=== PATIENT | female | born 1995 | race Caucasian/White ===

== ENCOUNTER 2016-09-26 15:31 | Emergency (ER) | payer SELFPAY ==
[~2016-09-26] VITALS: Ht 157.5 cm; Wt 63.5 kg
[~2016-09-26 15:31] MED LIST: BENTYL10 MG PO; NORCO 5/325 MG1 TAB PO; PNV-DHA1 SGL PO; ZOFRAN ODT4 MG SL
[2016-09-26 15:38] VITALS: BP 126/82
--- NOTE | 2016-09-26 16:29 | NUR ---
PATIENT TO ER BED 3.
--- NOTE | 2016-09-26 16:31 | NUR ---
Patient being evaluated by physician at bedside.
[2016-09-26] MEDS ORDERED: ALUMINUM HYD/MAG/SIMETHICONE 30 ML, BELLADONNA/PHENOBARBITAL 10 ML, LIDOCAINE VISCOUS 2... PO ONE (16:35)
[2016-09-26] MEDS ORDERED: KETOROLAC 60 MG/2 ML VIAL IM ONE (16:35)
[2016-09-26] MEDS ORDERED: ONDANSETRON 4 MG ODT PO ONE (16:35)
--- NOTE | 2016-09-26 16:37 | NUR ---
PATIENT PRESENTS TO ED WITH T PRESENTS TO ER W/C/O EPIGASTRIC PAIN X2 DAYS. PT DENIES ANY OTHER MEDICAL HX.DENIES N/V/D; SKIN IS PINK/WARM/DRY; AAOX4 WITH EVEN AND STEADY GAIT; LUNGS CLEAR BL; HR EVEN AND REGULAR; PT DENIES ANY FEVER, CP, SOB, OR COUGH AT THIS TIME; PATIENT STATES PAIN OF 8/10 AT THIS TIME; VSS; PATIENT POSITIONED FOR COMFORT; HOB ELEVATED; BEDRAILS UP X2; BED DOWN. ER MD MADE AWARE OF PT STATUS.
[2016-09-26 17:48] VITALS: BP 123/80
--- NOTE | 2016-09-26 17:48 | NUR ---
Patient discharged with v/s stable. Written and verbal after care instructions given and explained. Patient alert, oriented and verbalized understanding of instructions. Ambulatory with steady gait. All questions addressed prior to discharge. ID band removed. Patient advised to follow up with PMD. Rx of PEPCID, BENTYL AND MYLANTA given. Patient educated on indication of medication including possible reaction and side effects. Opportunity to ask questions provided and answered.
== END 2016-09-26 17:48 | disposition home or self-care (01) ==
LOC: MED 15:31
DX: R10.11 Right upper quadrant pain (principal); R19.7 Diarrhea, unspecified; R11.10 Vomiting, unspecified
CPT/HCPCS: 36415; 80053; 83690; 84703; 85025; 96372; 99284; J1885; S0119

== ENCOUNTER 2019-06-23 20:11 | Emergency (ER) | payer OTHER ==
[~2019-06-23] VITALS: Ht 157.5 cm; Wt 83.0 kg
[~2019-06-23 20:11] MED LIST changes: +ACET-8386 PO; +BEN10 PO; -BENTYL10 MG PO; -NORCO 5/325 MG1 TAB PO; +ONDA-24 SL; -PNV-DHA1 SGL PO; -ZOFRAN ODT4 MG SL
[2019-06-23 20:31] VITALS: BP 150/86
--- NOTE | 2019-06-23 20:31 | NUR ---
PT TO ER BED 2
[2019-06-23] MEDS ORDERED: LIDOCAINE 2% 1000 MG/50 ML VIAL INJ ONE (20:45)
--- NOTE | 2019-06-23 20:45 | NUR ---
ASSESSMENT COMPLETED AT THIS TIME. PATIENT LAYING DOWN BED. FRIEND AT BEDSIDE. BED IN LOW LOCKED POSITION. SIDE RAIL UP X1.
[2019-06-23 23:00] VITALS: BP 135/72
--- NOTE | 2019-06-23 23:01 | NUR ---
Patient discharged with v/s stable. Written and verbal after care instructions given and explained. Patient alert, oriented and verbalized understanding of instructions. Ambulatory with steady gait. All questions addressed prior to discharge. ID band removed. Patient advised to follow up with OB or return to ED in 2-3 days for recheck. Rx of BACTRIM,IBUPROFEN,AND NORCO given. Patient educated on indication of medication including possible reaction and side effects. Opportunity to ask questions provided and answered.
== END 2019-06-23 23:01 | disposition home or self-care (01) ==
LOC: MED 20:11
DX: N75.1 Abscess of Bartholin's gland (principal); Z79.899 Other long term (current) drug therapy
CPT/HCPCS: 56405; 99284; J2001

== ENCOUNTER 2019-06-25 15:08 | Emergency (ER) | payer SELFPAY ==
[~2019-06-25] VITALS: Ht 157.5 cm; Wt 81.6 kg
[2019-06-25 15:36] VITALS: BP 141/67
--- NOTE | 2019-06-25 15:46 | NUR ---
PATIENT AMBULATED STEADY GAIT T BED 12.
--- NOTE | 2019-06-25 16:03 | NUR ---
23/F PRESENTS TO ED WITH SIGNIFICANT OTHER FOR WOUND CHECK ON INCISION ON L BARTHOLIN CYST, WAS PERFORMED HERE IN [place] ER 2 DAYS AGO. PT REPORTS SUBJECTIVE FEVER, AFEBRILE AT THIS TIME. PT AWAKE AND ALERT, SKIN NORMAL COLOR WARM AND DRY, RR EVEN AND UNLABORED. DENIES KNOWN MED HX RX ABX AT THIS TIME
[2019-06-25 17:10] VITALS: BP 138/52
--- NOTE | 2019-06-25 17:10 | NUR ---
Patient discharged with v/s stable. Written and verbal after care instructions given and explained. Patient verbalized understanding. Ambulatory with steady gait. All questions addressed prior to discharge. Advised to follow up with PMD.
== END 2019-06-25 17:10 | disposition home or self-care (01) ==
LOC: MED 15:08
DX: N75.0 Cyst of Bartholin's gland (principal); Z79.899 Other long term (current) drug therapy
CPT/HCPCS: 99281

== ENCOUNTER 2019-12-11 12:20 | Emergency (ER) | payer OTHER, SELFPAY ==
[~2019-12-11] VITALS: Ht 157.5 cm; Wt 62.6 kg
[2019-12-11 12:32] VITALS: BP 138/75
--- NOTE | 2019-12-11 12:35 | NUR ---
24 Y/O FEMALE FROM HOME C/O DRY COUGH, SORE THROAT, AND RUNNY NOSE X 1 WK. STATES GENERALZIED BODY PAIN AND FATIGUE STARTED YESTERDAY. RR EVEN AND UNLABORED, NO RESPIRATORY DISTRESS. DENIES FEVER/CHILLS. +NAUSEA, DENIES VOMITING/DIARRHEA. POSITIONED FOR COMFORT. VSS. PT PLACED ON PULSE OX. MEDHX: DENIES ALLERGIES: NKA
--- NOTE | 2019-12-11 12:44 | NUR ---
XRAY AT BEDSIDE
--- NOTE | 2019-12-11 12:52 | NUR ---
COVID-19 SWAB COLLECTED FROM PT
--- NOTE | 2019-12-11 13:22 | NUR ---
DR SCHMIDT AT BEDSIDE EXAMINING PT
--- NOTE | 2019-12-11 13:23 | NUR ---
PT RESTING IN BED AWAKE AND ALERT ON CELL PHONE. RR EVEN AND UNLABORED. VSS. WILL CONTINUE TO MONITOR
[2019-12-11 13:37] VITALS: BP 128/70
--- NOTE | 2019-12-11 13:37 | NUR ---
Patient discharged with v/s stable. Written and verbal after care instructions given and explained. Patient alert, oriented and verbalized understanding of instructions. Ambulatory with steady gait. All questions addressed prior to discharge. ID band removed. Patient advised to follow up with PMD. Rx of Motrin 600mg given. Patient educated on indication of medication including possible reaction and side effects. Opportunity to ask questions provided and answered.
== END 2019-12-11 13:37 | disposition home or self-care (01) ==
LOC: EEVIPCON 12:20 → MED 12:20
DX: R05 Cough (principal); Z20.828 Contact with and (suspected) exposure to other viral communicable diseases; F12.90 Cannabis use, unspecified, uncomplicated; Z90.49 Acquired absence of other specified parts of digestive tract; Z98.890 Other specified postprocedural states; Z79.899 Other long term (current) drug therapy
CPT/HCPCS: 71045; 99283; C9803; Q0092; U0003; 36415

== ENCOUNTER 2020-06-30 10:46 | Emergency (ER) | payer OTHER, SELFPAY ==
[~2020-06-30] VITALS: Ht 157.5 cm; Wt 65.8 kg
[2020-06-30 11:43] VITALS: BP 157/81
--- NOTE | 2020-06-30 11:43 | NUR ---
COVID SWAB DONE
--- NOTE | 2020-06-30 11:47 | NUR ---
OF3
[2020-06-30 11:53] VITALS: BP 157/81
== END 2020-06-30 11:53 | disposition home or self-care (01) ==
LOC: MED 10:46
DX: R43.8 Other disturbances of smell and taste (principal); Z20.828 Contact with and (suspected) exposure to other viral communicable diseases; R50.9 Fever, unspecified; Z79.899 Other long term (current) drug therapy
CPT/HCPCS: 99283; U0003

== ENCOUNTER 2021-10-10 10:25 | Emergency (ER) | payer OTHER, SELFPAY ==
[~2021-10-10] VITALS: Ht 157.5 cm; Wt 55.8 kg
[~2021-10-10 10:25] MED LIST changes: +ONDA-188 SL; -ONDA-24 SL
[2021-10-10 10:29] VITALS: BP 158/107
--- NOTE | 2021-10-10 10:32 | NUR ---
PATIENT AMBULATED TO BED 4, PATIENT HAS STEADY GAIT
[2021-10-10] MEDS ORDERED: KETOROLAC 60 MG/2 ML VIAL IM ONE (11:10)
--- NOTE | 2021-10-10 11:10 | NUR ---
DOCTOR SCHMIDT AT BEDSIDE
[2021-10-10] MEDS ORDERED: IBUP-2213 PO (11:27)
[2021-10-10] MEDS ORDERED: ACET-8386 PO (11:27)
--- NOTE | 2021-10-10 11:35 | NUR ---
Patient discharged with v/s stable. Written and verbal after care instructions given and explained. Patient alert, oriented and verbalized understanding of instructions. Ambulatory with steady gait. All questions addressed prior to discharge. ID band removed. Patient advised to follow up with PMD. Rx of IBUPROFEN AND HYDROCODONE/ACETAMINOPHEN given. Patient educated on indication of medication including possible reaction and side effects. Opportunity to ask questions provided and answered.
[2021-10-10 11:36] VITALS: BP 158/107
== END 2021-10-10 11:36 | disposition home or self-care (01) ==
LOC: MED 10:25
DX: R07.89 Other chest pain (principal); Z90.49 Acquired absence of other specified parts of digestive tract; Z98.890 Other specified postprocedural states; Z79.891 Long term (current) use of opiate analgesic; Z79.899 Other long term (current) drug therapy
CPT/HCPCS: 93005; 96372; 99283; J1885

== ENCOUNTER 2022-01-29 02:25 | Emergency (ER) | payer OTHER ==
[~2022-01-29] VITALS: Ht 157.5 cm; Wt 52.2 kg
[~2022-01-29 02:25] MED LIST changes: +IBUP-2213 PO
[2022-01-29 02:31] VITALS: BP 150/70
--- NOTE | 2022-01-29 02:34 | NUR ---
TO LOBBY A/W BED AMBULATORY
[2022-01-29] MEDS ORDERED: HALOPERIDOL IM 5 MG/ML VIAL IM ONE (03:55)
--- NOTE | 2022-01-29 04:23 | NUR ---
PT AMBULATED TO BED #9
--- NOTE | 2022-01-29 04:41 | NUR ---
LABS COLLECTED AND TAKEN TO LAB.
--- NOTE | 2022-01-29 04:55 | NUR ---
26 YO F BIB SELF WITH C/C OF 10/10 EPIGASTRIC PAIN RAD TO BACK X3DAYS. +NAUSEA. ONE EPISODE OF VOMITING. DENIES URINARY SYMPTOMS. DENIES THIS HAPPENING IN PAST. PT TOOK ADVIL AROUND 3AM WITH NO RELIEF. HX:HYPOTHYROIDISM NKA
[2022-01-29 05:08] LABS: BASOPHILS # (AUTO) 0.1 K/uL (0.00-0.22); BASOPHILS % (AUTO) 1.7 % (0.0-2.0); EOSINOPHILS # (AUTO) 0.1 K/uL (0-0.4); EOSINOPHILS % (AUTO) 0.8 % (0.0-4.0); HEMATOCRIT 38.3 % (36-48); HEMOGLOBIN 12.9 g/dL (12.0-16.0); LYMPHOCYTES # (AUTO) 1.1 K/uL (2.5-16.5); LYMPHOCYTES % (AUTO) 16.6 % (20.5-51.1); MEAN CORPUSCULAR HEMOGLOBIN 29 pg (27-31); MEAN CORPUSCULAR HGB CONC 34 g/dL (33-37); MEAN CORPUSCULAR VOLUME 85.4 fL (80-94); MONOCYTES # (AUTO) 0.3 K/uL (0.8-1.0); MONOCYTES % (AUTO) 4.8 % (1.7-9.3); NEUTROPHILS # (AUTO) 4.9 K/uL (1.8-7.7); NEUTROPHILS % (AUTO) 76.1 % (42.2-75.2); PLATELET COUNT (AUTO) 178 K/uL (140-450); RED BLOOD CELL COUNT(AUTO) 4.49 MIL/uL (4.20-5.40); RED CELL DISTRIBUTION WIDTH 14.7 % (11.6-13.7); WHITE BLOOD COUNT (AUTO) 6.4 K/uL (4.8-10.8)
[2022-01-29 05:26] LABS: ALBUMIN 4.2 g/dL (3.4-5.0); ANION GAP 13.3 (8-16); CARBON DIOXIDE 26.2 mmol/L (21-32); CREATININE 0.9 mg/dL (0.6-1.3); POTASSIUM 3.5 mmol/L (3.5-5.1); TOTAL BILIRUBIN 0.4 mg/dL (0.0-1.0)
--- NOTE | 2022-01-29 06:15 | NUR ---
PT APPEARS TO BE RESTING. EQUAL RISE AND FALL OF CHEST WALL. ALL NEEDS MET AT THIS TIME. BED LOCKED IN LOWEST POSITION, SIDE RAILS X2 FOR SAFETY.
--- NOTE | 2022-01-29 06:20 | NUR ---
MARK STATED "I'M READY TO GO HOME. I JUST DYING HERE" MADE AWARE.
[2022-01-29 06:31] VITALS: BP 140/70
[2022-01-29 06:45] LABS: BARBITURATE, URINE NEGATIVE ng/ml (NEG <=200); BENZODIAZEPINE, URINE NEGATIVE ng/mL (NEG <=200)
[2022-01-29 06:46] LABS: CANNABINOID, URINE POSITIVE ng/mL (NEG <=50); COCAINE, URINE NEGATIVE ng/mL (NEG <=300); OPIATE, URINE NEGATIVE ng/mL (NEG <=2000); PHENCYCLIDINE SCREEN,URINE NEGATIVE ng/mL (NEG <=25)
== END 2022-01-29 06:31 | disposition home or self-care (01) ==
LOC: MED 02:25
DX: R10.13 Epigastric pain (principal); R11.2 Nausea with vomiting, unspecified; F17.200 Nicotine dependence, unspecified, uncomplicated; F12.90 Cannabis use, unspecified, uncomplicated; Z90.49 Acquired absence of other specified parts of digestive tract; Z79.899 Other long term (current) drug therapy
CPT/HCPCS: 36415; 80053; 80305; 81002; 81025; 83690; 85025; 96372; 99283; J1630